=== PATIENT | male | born 1960 | race Caucasian/White ===

== ENCOUNTER 2017-01-10 09:24 | Day surgery (SDC) | payer OTHER ==
--- NOTE | 2017-01-05 21:05 | HP ---
HISTORY AND PHYSICAL: DATE OF ADMISSION: 01/10/17 [facility] DATE OF OFFICE VISIT: 01/04/17 SURGEON: William Solorzano MD * (DICTATED BY LLOYD MYLES) PROCEDURE: Left knee arthroscopy with partial medial meniscectomy. CHIEF COMPLAINT: Left knee pain. HISTORY OF PRESENT ILLNESS: Mr. Red is a 56-year-old gentleman with continued complaints of left knee pain secondary to medial meniscus tear. He has failed conservative management and has elected to proceed with a left knee arthroscopy with partial medial meniscectomy, which is scheduled with Dr. Solorzano. PAST MEDICAL HISTORY: Sleep apnea and hypertension. PAST SURGICAL HISTORY: Deviated septum surgery. CURRENT MEDICATIONS: 1. Amlodipine. 2. Losartan. 3. Bisoprolol fumarate/hydrochlorothiazide. ALLERGIES: To CODEINE. FAMILY HISTORY: Denied. SOCIAL HISTORY: He is a 56-year-old gentleman. He lives with his . He does not smoke or use drugs. 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 REVIEW OF SYSTEMS: A complete 14-point review of systems is reviewed with the patient; was all negative or noncontributory. PHYSICAL EXAMINATION GENERAL: Well developed, well nourished, in no acute distress. He is alert and oriented x3, pleasant mood, appropriate affect. HEENT: Normocephalic, atraumatic. NECK: Supple. No palpable lymph nodes. PULMONARY: Lungs are clear to auscultation bilaterally. CARDIO: Regular rate and rhythm. Strong S1, S2. ABDOMEN: Soft, nontender, nondistended. MUSCULOSKELETAL: Left lower extremity, the skin is intact. There are no open wounds or abrasions. He has tenderness over the medial joint line. Positive Rosa's. No varus or valgus instability. Negative Jhony's. 2+ dorsalis pedis pulses. His lower extremity muscle group strengths are intact at 5/5. ASSESSMENT AND PLAN: Mr. Red is a 56-year-old gentleman with a medial meniscus tear. He has elected to proceed with right knee arthroscopy with partial medial meniscectomy, which is scheduled with Dr. Solorzano. He will follow up with Dr. Solorzano 10 to 14 days after the surgery. LLOYD MYLES [id number]/[facility] #: [id number] [facility] CENTERGregorio
[~2017-01-10 09:24] MED LIST: Buffered Lidocaine 0.9% SYRIN* 5 ML/SYR SYRINGE INTRADERM ONE; Dexamethasone IV* 4 MG/ML 1 ML (4 MG) IV SLOW PU ONE; Famotidine IV* 10 MG/ML 2 ML (20 mg) IV ONE
[2017-01-10] MEDS ORDERED: Bupivacaine 0.25% SDV* 30 ML ONE ×2 (09:29→09:32)
[2017-01-10] MEDS ORDERED: ceFAZolin 2 GM PREMIX (*) 50 ML IVPB ONE (10:02)
[2017-01-10] MEDS ORDERED: Famotidine IV* 10 MG/ML 2 ML (20 mg) ONE (10:03)
[2017-01-10] MEDS ORDERED: Dexamethasone IV* 4 MG/ML 1 ML (4 MG) ONE (10:03)
[2017-01-10] MEDS ORDERED: Midazolam* 1 MG/ML 2 ML VIAL (2 MG) ONE (10:05)
[2017-01-10] MEDS ORDERED: fentaNYL* 50 MCG/ML 2 ML VIAL (100 MCG VIAL) ONE (10:05)
[2017-01-10] MEDS ORDERED: Ketorolac INJ* 30 MG/ML 1 ML VIAL ONE (10:08)
[2017-01-10] MEDS ORDERED: Propofol* 10 MG/ML 20 ML BTL IV PUSH ONE (10:08)
[2017-01-10] MEDS ORDERED: Ondansetron INJ* 2 MG/ML VIAL ONE (10:08)
[2017-01-10] MEDS ORDERED: EPHEDrine (Pressors)* 50 MG/ML VIAL ONE (11:00)
[2017-01-10] MEDS ORDERED: Phenylephrine IV* 40 MCG/ML 10 ML SYRINGE ONE (11:00)
[2017-01-10] MEDS ORDERED: fentaNYL* 50 MCG/ML 2 ML VIAL (100 MCG VIAL) IV PRN (11:25)
[2017-01-10] MEDS ORDERED: DiMENhydriNATE IV* 50 MG/ML VIAL IV PUSH PRN (11:25)
[2017-01-10 12:18] VITALS: BP 132/71
--- NOTE | 2017-01-12 06:33 | OP ---
CC: PCP. OPERATIVE REPORT: DATE OF : 60 DATE OF OPERATION: 01/10/17 SURGEON: William Solorzano MD. BLIND HANGER: None available. ANESTHESIOLOGIST: Dr. Hopper. ANESTHESIA: General. PRE-OP DIAGNOSIS: Left knee medial meniscus tear POST-OP DIAGNOSIS: Left knee medial meniscus tear, lateral meniscal fraying, chondrosis of medial femoral condyle and patella OPERATIVE PROCEDURE: Left knee arthroscopy with chondroplasty, partial medial and lateral menisectomy COMPLICATIONS: None. ESTIMATED BLOOD LOSS: Minimal. INDICATIONS: Cheryl Red is a 56-year-old male who sustained injury to his knee. He has failed conservative management. He had a steroid injection, which did not help and he had known meniscus tear based on MRI. He reported mechanical symptoms. We discussed risks and benefits of operative versus nonoperative treatment. He has persistent daily pain and inability and difficulty with his activities of daily living. The risks and benefits of surgery were discussed at length and included, but are not limited to bleeding, infection, damage to nerves, vessels, surrounding structures, wound nonhealing, persistent pain, need for further surgery, scarring, stiffness, incomplete relief symptoms, risks of anesthesia and risk of DVT, he has elected to proceed. DESCRIPTION OF PROCEDURE: The patient was greeted in the preoperative area by the attending surgeon. Correct extremity was marked. Consent was confirmed. The patient was brought back to the operating suite where he was placed in supine position on the operating table. He underwent general anesthesia and LMA intubation, after which an unsterile tourniquet was placed high proximal on the proximal thigh and the lateral post was positioned. The left leg was then prepped and draped in the usual sterile fashion with chlorhexidine soap, scrub and alcohol wipe and a final prep with ChloraPrep. After appropriate surgical pause indicating side, site, and procedure, administration of antibiotics, a standard lateral portal was made sharply with a 11 blade. The scope was introduced into the joint and the joint was examined. There were small areas of grade 2 changes in the patella. The trochlea otherwise had grade 0 to 1 changes and medial and lateral gutters were intact without any loose body. The medial femoral condyle had mild amount of grade 1 and some small areas of grade 2 changes. The medial meniscus had an unstable flap that had flipped into the joint and gutter that was incarcerated. The ACL and PCL were intact. The anteromedial portal was made with an 18 gauge needle for localization and the shaver and biters were used to carefully do a partial meniscectomy. The meniscus flap was then debrided back. This was the posterior medial aspect of the meniscus, the root was otherwise intact. Small chondroplasty of medial femoral condyle was done using a shaver. The knee was placed in a [id number] position and the lateral compartment was examined. There was grade 0 to 1 change to the plateau. Grade 1 and 2 changes of the condyle. There was meniscal fraying, which is also debrided back of the lateral meniscus. Once the partial meniscectomy of both sides were complete, then chondroplasty of medial femoral condyle and the patellofemoral joint was complete, all fluid and debris was removed. The knee was thoroughly lavaged. The portals were then irrigated with sterile saline and the portals were closed with 3-0 nylon in interrupted fashion. Sterile dressings were applied as well as Cryo/Cuff. He was awoken from anesthesia and transferred to PACU in stable condition. POSTOPERATIVE PLAN: He will be weightbearing as tolerated. He will be on crutches in 3 to 5 days. Discharged on pain medications. DVT prophylaxis was considered, but deferred due to no previous personal or family history. I will see the patient back in 10 to 14 days. [id number]/[facility] #: [id number] MTDD
== END 2017-01-10 12:50 | disposition home or self-care (01) ==
LOC: OREAST 09:24
PROVIDERS: ATTEND Orthopaedic Surgery
DX: S83.242A Other tear of medial meniscus, current injury, left knee, initial encounter (principal); S83.282A Other tear of lateral meniscus, current injury, left knee, initial encounter; X58.XXXA Exposure to other specified factors, initial encounter; Y92.9 Unspecified place or not applicable; Z68.41 Body mass index [BMI] 40.0-44.9, adult; G47.33 Obstructive sleep apnea (adult) (pediatric); I10 Essential (primary) hypertension
CPT/HCPCS: J0690; J1100; J1885; J2250; J2405; J2704; J3010

== ENCOUNTER 2018-05-30 05:32 | Inpatient (IN) | payer OTHER ==
--- NOTE | 2018-05-18 14:54 | HP ---
HISTORY AND PHYSICAL: DATE OF SURGERY: 05/30/18 DATE OF OFFICE VISIT: 05/17/18 SURGEON: Annika Rothman MD.* (DICTATED BY LLOYD MYLES) PROCEDURE: Left total knee arthroplasty. CHIEF COMPLAINT: Left knee pain. HISTORY OF PRESENT ILLNESS: Mr. Red is a 57-year-old gentleman with continued complaints of left knee pain. He has failed conservative treatment and elected to proceed with surgery. PAST MEDICAL HISTORY: Hypertension. PAST SURGICAL HISTORY: Sinus surgery, left knee scope x2. CURRENT MEDICATIONS: 1. Losartan potassium 100 mg daily. 2. Amlodipine 10 mg daily. 3. Bisoprolol/hydrochlorothiazide 10/6.25 mg once a day. 4. Naproxen 250 mg daily. 5. Multivitamin. ALLERGIES: To CODEINE, SULFA, and PERCOCET. CODEINE and PERCOCET causing constipation only. FAMILY HISTORY: Denied. SOCIAL HISTORY: He is a 57-year-old gentleman who lives with his . He does not smoke or use drugs, uses occasional alcohol. REVIEW OF SYSTEMS: A complete 14-point review of systems was reviewed with the patient. It was all negative or noncontributory. PHYSICAL EXAMINATION GENERAL: He is well developed, well nourished, in no acute distress. VITAL SIGNS: He stands 5 feet 5 inches tall, weighs 281 pounds. Blood pressure is 120/74, heart rate 60. HEENT: Normocephalic, atraumatic. NECK: Supple, no palpable lymph nodes. PULMONARY: Lungs are clear to auscultation bilaterally. CARDIAC: Regular rate and rhythm. Strong S1, S2. ABDOMEN: Soft, nontender, nondistended. NEUROLOGICAL: He is alert and oriented x3. MUSCULOSKELETAL: Left lower extremity, the skin is intact. There are no open wounds or abrasions. Range of motion is 10 to 120 degrees of flexion. Calves are soft and nontender. He has a 2+ dorsalis pedis pulse and his lower extremity muscle group strengths are intact at 5/5. ASSESSMENT AND PLAN: Mr. Red is a 57-year-old gentleman with end-stage osteoarthritis of the left knee, who has failed conservative treatment and elected to proceed with left total knee arthroplasty. The surgery is scheduled for 05/30/[address] Rothamn discussed the risks and benefits of the surgery at today's visit and all of his questions were answered. He will follow up with Dr. Rothman 2 weeks after the surgery. LLOYD MYLES [id number]/[facility] #: [id number] MTDD
[~2018-05-30 05:32] MED LIST changes: -Buffered Lidocaine 0.9% SYRIN* 5 ML/SYR SYRINGE INTRADERM ONE; +Buffered Lidocaine 1% SYRIN* 1 ML/SYRINGE INTRADERM ONE; -Dexamethasone IV* 4 MG/ML 1 ML (4 MG) IV SLOW PU ONE; -Famotidine IV* 10 MG/ML 2 ML (20 mg) IV ONE; +Tranexamic Acid 1,000 MG in NS 0.9% 50 ML* (outpatient use) IV SCH
[2018-05-30] MEDS ORDERED: celeCOXIB CAP* 200 MG PO ONE (06:00)
[2018-05-30] MEDS ORDERED: Dexamethasone IV* 4 MG/ML 1 ML (4 MG) IV SLOW PU ONE (06:00)
[2018-05-30] MEDS ORDERED: Lactated Ringers 1000 ML Bag* 1,000 ML IV SCH ×2 (06:00→11:00)
[2018-05-30] MEDS ORDERED: Gabapentin CAP(*) 300 MG PO ONE (06:00)
[2018-05-30] MEDS ORDERED: Acetaminophen IV 1GM/100ML * 1,000 MG/100 ML VIAL IVPB ONE (06:00)
[2018-05-30] MEDS ORDERED: Famotidine IV* 10 MG/ML 2 ML (20 mg) IV ONE (06:00)
[2018-05-30] MEDS ORDERED: Dexamethasone IV* 4 MG/ML 1 ML (4 MG) ONE ×2 (06:05→06:25)
[2018-05-30] MEDS ORDERED: ceFAZolin 2 GM PREMIX in ORs 2 GM/50 ML BAG IVPB ONE (06:05)
[2018-05-30] MEDS ORDERED: Gabapentin CAP(*) 300 MG ONE (06:05)
[2018-05-30] MEDS ORDERED: celeCOXIB CAP* 100 MG ONE (06:05)
[2018-05-30] MEDS ORDERED: Buffered Lidocaine 1% SYRIN* 1 ML/SYRINGE INTRADERM ONE (06:05)
[2018-05-30] MEDS ORDERED: Famotidine IV* 10 MG/ML 2 ML (20 mg) ONE (06:25)
[2018-05-30] MEDS ORDERED: Acetaminophen IV 1GM/100ML * 100 ML ONE (06:26)
[2018-05-30] MEDS ORDERED: Propofol* 10 MG/ML 20 ML BTL ONE (07:09)
[2018-05-30] MEDS ORDERED: Atracurium* 10 MG/ML 10 ML VIAL ONE (07:09)
[2018-05-30] MEDS ORDERED: fentaNYL* 50 MCG/ML 5 ML VIAL (250 MCG VIAL) ONE (07:09)
[2018-05-30] MEDS ORDERED: Ondansetron INJ* 2 MG/ML VIAL ONE (07:09)
[2018-05-30] MEDS ORDERED: Midazolam* 1 MG/ML 5 ML VIAL (5 MG) ONE (07:09)
[2018-05-30] MEDS ORDERED: EPHEDrine (Pressors)* 50 MG/ML VIAL ONE (07:10)
[2018-05-30] MEDS ORDERED: ROPIVACAINE 5 MG/ML 30 ML BTL (0.5%) ONE ×3 (07:15→07:23)
[2018-05-30] MEDS ORDERED: Ropivacaine* 2 MG/ML 20 ML VIAL (0.2%) ONE (07:20)
[2018-05-30] MEDS ORDERED: fentaNYL* 50 MCG/ML 2 ML VIAL (100 MCG VIAL) ONE ×4 (08:20→13:23)
[2018-05-30] MEDS ORDERED: Ondansetron INJ* 2 MG/ML VIAL IV PRN ×2 (08:28→10:22)
[2018-05-30] MEDS ORDERED: Naloxone* 0.4 MG/ML 1 ML VIAL IV PRN (08:28)
[2018-05-30] MEDS ORDERED: DiMENhydriNATE IV* 50 MG/ML VIAL IV PUSH PRN (08:28)
[2018-05-30] MEDS ORDERED: Phenylephrine INJ* 10 MG/ML 1 ML VIAL (10 MG) ONE (08:53)
[2018-05-30] MEDS ORDERED: Ondansetron TAB* 4 MG PO PRN (10:22)
[2018-05-30] MEDS ORDERED: oxyCODONE TAB* 5 MG TAB PO PRN (10:22)
[2018-05-30] MEDS ORDERED: Polyethylene Glycol 3350* 17 GM PACKET PO PRN (10:22)
[2018-05-30] MEDS ORDERED: traMADol TAB* 50 MG PO PRN (10:22)
[2018-05-30] MEDS ORDERED: oxyCODONE/Acetamin 5/325 MG* TAB PO PRN ×2 (10:22)
[2018-05-30] MEDS ORDERED: Bisacodyl SUPP* 10 MG SUPP PR PRN (10:22)
[2018-05-30] MEDS ORDERED: diPHENhydraMINE IV* 50 MG/ML 1 ml VIAL (BENADRYL) IV PRN (10:22)
[2018-05-30] MEDS ORDERED: Magnesium Hydroxide LIQ* 30 ML UDC PO PRN (10:22)
[2018-05-30] MEDS ORDERED: HYDROmorphone INJ1* 1 MG/ML SYRINGE ONE (10:33)
[2018-05-30] MEDS: fentaNYL* 50 MCG/ML 2 ML VIAL (100 MCG VIAL) IV PRN ×5 (10:35→11:32)
[2018-05-30] MEDS: HYDROmorphone INJ1* 1 MG/ML SYRINGE IV PRN ×5 (10:51→11:41)
[2018-05-30] MEDS ORDERED: Acetaminophen TAB* 325 MG PO SCH (11:00)
[2018-05-30] MEDS ORDERED: DiMENhydriNATE IV* 50 MG/ML VIAL ONE (12:52)
[2018-05-30] MEDS ORDERED: HYDROcodone/ACETAMIN 5-325 MG* 1 TAB PO PRN (13:24)
[2018-05-30] MEDS ORDERED: Acetaminophen TAB* 325 MG PO PRN (13:26)
--- NOTE | 2018-05-30 14:20 | PN ---
Progress Note - Progress Note Date of Service: 05/30/18 Note: resting comfortably, pain well controlled; dressing c/d/i. able to dorsi flex/ plantar flex, 2+ DP pulse/ intact sensation
[2018-05-30] MEDS: traMADol TAB* 50 MG PO SCH ×2 (15:47→20:35)
[2018-05-30] MEDS: ceFAZolin 1 GM ADVAN(*) 1 GM in NS 0.9% 50 ML* 50 ML IVPB SCH (16:43)
--- NOTE | 2018-05-30 16:47 | CONS ---
CC: Dr. Rothman; Dr. Bloom * CONSULTATION REPORT: DATE OF CONSULT: 05/30/18 PRIMARY CARE PROVIDER: Dr. Chapin Bloom. REASON FOR CONSULTATION: Desaturation and elevated CO2 levels on capnography. CHIEF COMPLAINT: Unknown. HISTORY OF PRESENT ILLNESS: Cheryl Red is a 57-year-old morbidly obese male with history of hypertension, status post left knee replacement performed by Dr. Rothman today. The patient did well postoperatively until he left the PACU and went to surgical unit. His capnography noted CO2 levels of 55 to 60. His oxygenation fell down to the point that he needed to use oxygen at 3 to 6 L. A rapid response team was called. The patient's anesthesiologist was by the bedside. It was noted the patient has body physique that may predispose the patient to obstructive sleep apnea. The patient stated that he does snore at night, but he was never evaluated for sleep apnea. An ABG was drawn. At this point, decision is made to transfer the patient to the intensive care unit for CPAP since as per hospitalist policy, new patients who require CPAP needs to be hospitalized in the intensive care unit. PAST MEDICAL HISTORY: 1. Hypertension. 2. Obesity. 3. Osteoarthritis. 4. History of left knee arthroscopy. 5. History of deviated septum surgery at around age 20. 6. History of right bundle branch block. 7. History of BPH. MEDICATIONS: Outpatient include: 1. Naproxen 500 q.a.m. 2. Multivitamin 1 tablet daily. 3. Losartan 100 mg daily. 4. Bisoprolol/hydrochlorothiazide 10/6.25 mg 1 tablet daily. 5. Norvasc 10 mg daily. ALLERGIES: Include HYDROCODONE, CODEINE, ACETAMINOPHEN, and SULFA drugs. FAMILY HISTORY: Noncontributory. 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 His surrogate is his . He denies any tobacco or drug use. He drinks an occasional beer. REVIEW OF SYSTEMS: The patient currently feels no short of breath, no chest pain. He is postoperative. He was noted to be as rapid response team and he is little bit overwhelmed with people surrounding him. He has no complaints of postoperative pain. He received the dose of Fentanyl and hydromorphone approximately 2 hours ago. Remaining 12 systems were reviewed with the patient and were otherwise negative. PHYSICAL EXAM: Blood pressure of 148/90, heart rate of 79 and regular, respiratory rate 18, oxygen saturation 93% on 3 L oxygen via nasal cannula, temperature 96.8. General Appearance: This is a very pleasant 57-year-old male with a BMI of 45. The patient is not in acute distress. Alert, awake, and oriented x3. HEENT: Head: Atraumatic and normocephalic. Eyes: Pupils are equal and reactive to light and accommodation. Oropharynx clear, mucosa moist. Neck: Supple. No JVD. No bruits bilaterally. Cardiovascular: Regular rate and rhythm. No murmur. Respiratory: Clear to auscultation bilaterally. Abdomen: Soft, nontender. Bowel sounds are present in all 4 quadrants. Extremities: There is trace bilateral ankle edema. Pulses are +2 bilaterally. There is no clubbing or cyanosis. The left lower extremity, the knee area is covered with postsurgical dressing with Cryo unit in place. Neuro Evaluation: Speech is clear. Cranial nerves II through XII are grossly intact. Motor strength 5/5 bilaterally with limitations of movement in the left postoperative knee that was not fully evaluated. Psychiatric Evaluation: Alert and oriented x3 with no evidence of anxiety or depression. DIAGNOSTIC STUDIES/LAB DATA: Showed ABG which shows pH of 7.29, pCO2 of 59, pO2 of 83, and bicarbonate level of 25. The patient's portable chest x-ray; poor inspiratory effort and no evidence of cardiac infiltrates. Cardiac silhouette within normal limits. It was reviewed by myself prior to the official radiologist report. ASSESSMENT AND PLAN: 1. Hypercapnic respiratory failure in patient who has likely undiagnosed obstructive sleep apnea, is morbidly obese, and is postoperative with narcotics on board. At this point, the patient is going to be transferred to intensive care unit for CPAP or BiPAP. He has respiratory acidosis and his ABG is going to be repeated in an hour. I suspect the patient will need only an overnight stay. 2. In regards to the patient's postoperative management after knee surgery, that is already managed by orthopedic surgeons. 3. In regards to the patient's DVT prophylaxis, postop Eliquis was already ordered by the orthopedic service. 4. For the patient's hypertension, the patient's blood pressure medications were reordered for tomorrow. His blood pressures are currently in the 140s and I believe we do not need to hold any of his medications in the morning. 5. The patient's code status is full and his surrogate is his . TIME SPENT: Approximately 65 minutes was spent on consultation of this patient , more than half that time was spent [id number] with the patient during the interview and physical exam. Thank you very much for allowing us to see the patent in consultation. We will follow on daily basis. [id number]/[facility] #: [id number] MARU
[2018-05-30] MEDS: Cyclobenzaprine TAB* 10 MG PO PRN (16:48)
[2018-05-30] MEDS: Morphine VIAL* 4 MG/ML VIAL (1 ml vial) IV PRN (18:43)
[2018-05-30] MEDS: HYDROcodone/ACETAMIN 5-325 MG* 1 TAB PO PRN (19:19)
[2018-05-30] MEDS: Magnesium Hydroxide LIQ* 30 ML UDC PO SCH (20:35)
[2018-05-30] MEDS: Gabapentin CAP(*) 300 MG PO SCH (20:35)
[2018-05-30] MEDS: Docusate CAP* 100 MG PO SCH (20:36)
--- NOTE | 2018-05-30 22:10 | OP ---
DATE OF OPERATION: 05/30/18 - ROOM #ICU-11 DATE OF : 60 SURGEON: Annika Rothman MD [employer]ATION [employer] AGENT: LLOYD Williamson. Ms. Rivera did help throughout the procedure with preparation of the leg, wound retraction, manipulation of the knee, and wound closure. ANESTHESIOLOGIST: Dr. Pelaez. ANESTHESIA: Spinal. PRE-OP DIAGNOSIS: Severe end-stage osteoarthritis of the left knee joint. POST-OP DIAGNOSIS: Severe end-stage osteoarthritis of the left knee joint. OPERATIVE PROCEDURE: Left total knee arthroplasty. INDICATIONS: Mr. Red is a 57-year-old gentleman with 1 year of severe left knee pain. He had multiple arthroscopies, which did not help his pain. He failed conservative treatment with antiinflammatories, pain medication, intraarticular injection, and physical therapy. His radiographs showed bone-on- bone arthritis. Due to continued pain and decreased quality of life, he elected to undergo a left total knee arthroplasty. Informed consent was obtained from the patient. He understood the risks of surgery included, but were not limited to, bleeding, infection, damage to nearby structures, continued pain, need for further surgery, intraoperative fracture, nerve palsy, hardware failure or loosening, knee stiffness, loss of motion, stroke, heart attack, blood clot, and . He wished to proceed. TOURNIQUET TIME: 53 minutes. COMPLICATIONS: None. SPECIMENS: Bone and cartilage from the left knee joint sent to Pathology. ESTIMATED BLOOD LOSS: 200 cc. HARDWARE USED: This is [employer] total knee arthroplasty hardware. Two packages of Simplex bone cement. For the femur, a left size 7 posterior stabilized Legion Oxinium femoral component. For the tibia, a left Gayathri II size 5 tibial base plate. For the insert, an 11-mm posterior stabilized articular insert size 5/6. For the patella, a 35-mm 3-peg all poly patella. INTRAOPERATIVE FINDINGS: Intraoperatively, the patient was noted to have full thickness loss of cartilage along the medial and lateral femoral condyle. He had extensive osteoarthritis in the patellofemoral compartment. DESCRIPTION OF PROCEDURE: Mr. Red was identified in the preanesthesia unit. His left lower extremity was marked as the correct operative side. Informed consent was signed and placed in the chart. The patient was taken to the operating room and placed under spinal anesthesia. A Gallego catheter was placed. Tourniquet was placed on the left thigh. Left lower extremity was prepped and draped in the usual sterile fashion. Preop time-out was made to correctly identify the patient's side and site. Appropriate perioperative antibiotics were given within 1 hour of incision. Tourniquet was inflated and total tourniquet time for this procedure minutes. A midline incision was made with a 10 blade and carried down to the extensor mechanism. A new 10 blade was used to make a standard medial parapatellar arthrotomy. The patella was subluxed laterally. Electrocautery was used to subperiosteally elevate the soft tissue off the superomedial tibia to the midsagittal plane. The knee was flexed up. Anterior horn of the lateral meniscus and ACL were sharply released. A drill was used to enter the distal femur. Intramedullary distal femoral cutting guide was pinned on the distal femur. Oscillating saw was used to make the distal femoral cut. The external rotation guide was pinned on the distal femur. Distal femur was sized to a size 7. Size 7 multi-cutting jig was pinned on the distal femur. Oscillating saw was used to make the appropriate 4-chamfer cuts. The PCL was completely released. Extramedullary tibial cutting guide was pinned on the proximal tibia. Oscillating saw was used to make the proximal tibial cut perpendicularly to the mechanical axis of the tibia. The bone was carefully removed. The knee was brought out into full extension. Spacer block had good fit with the knee in full extension. Medial and lateral ligaments were well balanced. Flexion and extension gaps were well balanced. The knee was flexed up. Lamina stroke belt sander operator was placed both medially and laterally. Any remaining meniscus was carefully removed using electrocautery. Curved osteotome was used to remove any posterior osteophytes. Tibial tray and drop ama confirmed a satisfactory tibial cut. A left size 7 femoral trial was impacted on to the distal femur and had excellent fit and stability. The box for the posterior stabilized implant was prepared using a reamer and box cut osteotome. Size 5 tibial tray trial with an 11-mm insert trial was placed and the knee was taken through a range of motion. Knee had full extension to 130 degrees of flexion. There was satisfactory patellofemoral tracking. The patella was everted. 9 mm of patellar bone and cartilage were carefully removed using an oscillating saw. The patella was sized to a size 35. Three pegs holes were drilled through the size 35 guide. A 35 trial patella was placed and the knee was taken through range of motion. There was satisfactory patello-femoral tracking. All trials were removed. The tibia was subluxed anteriorly and sized to a size 5. Proximal tibia was prepared using a size 5 keel punch. All bony cut surfaces were copiously irrigated with sterile saline and dried. The final implants were cemented into place starting with the tibia, followed by the femur , and lastly the patella. An 11-mm insert trial was placed and the knee was brought out into full extension. Tourniquet was turned down at 53 minutes. The knee was copiously irrigated with sterile saline. Electrocautery was used to obtain meticulous hemostasis. Once the cement had fully cured, the insert trial was removed. Any excess cement was removed from around the capsule and hardware. Final insert chosen was an 11-mm posterior stabilized articular insert size 5/6. This was locked into position on the tibial tray. Stability of the insert was checked and rechecked and noted to be stable. The knee was copiously irrigated with sterile saline. The extensor mechanism was closed using interrupted #1 Vicryls. The rest of the incision was closed in a layered fashion using 0 and 2-0 Vicryls. Skin was closed using running 3- 0 nylon suture. Sterile Xeroform, 4x4s, and Webril were used to cover the incision. Freeman wrap and cold pack were placed over this. The patient's anesthesia was reversed without difficulty. He was taken to the PACU in stable condition. Intended weightbearing will be weightbearing as tolerated. Intended DVT prophylaxis will be Eliquis. [id number]/[facility] #: [id number] [facility]
[2018-05-31] MEDS: ceFAZolin 1 GM ADVAN(*) 1 GM in NS 0.9% 50 ML* 50 ML IVPB SCH ×2 (00:01→08:00)
[2018-05-31] MEDS: traMADol TAB* 50 MG PO SCH ×2 (01:56→08:15)
[2018-05-31 06:07] LABS: Hematocrit 45 % (42-52); Hemoglobin 14.9 g/dl (14.0-18.0); Mean Platelet Volume 10.3 fL (7.4-10.4); Platelet Count 124 10^3/ul (150-450)
[2018-05-31] MEDS: HYDROcodone/ACETAMIN 5-325 MG* 1 TAB PO PRN ×4 (06:08→19:25)
[2018-05-31 06:12] LABS: INR 0.98 (0.77-1.02)
[2018-05-31 06:21] LABS: BUN/Creatinine Ratio 15.9 (8-20); Calcium 8.9 mg/dL (8.6-10.3); EGFR African American 117.2 (>60); EGFR Non-African American 96.8 (>60); Potassium 4.6 mmol/L (3.5-5.0)
[2018-05-31] MEDS: Hydrochlorothiazide TAB* 25 MG PO SCH (08:13)
[2018-05-31] MEDS: Losartan TAB* 25 MG PO SCH (08:14)
[2018-05-31] MEDS: amLODIPine TAB* 5 MG PO SCH (08:15)
[2018-05-31] MEDS: Docusate CAP* 100 MG PO SCH ×2 (08:15→22:09)
[2018-05-31] MEDS: Gabapentin CAP(*) 300 MG PO SCH ×2 (08:15→22:09)
[2018-05-31] MEDS: Magnesium Hydroxide LIQ* 30 ML UDC PO SCH ×2 (08:16→22:10)
[2018-05-31] MEDS: Bisoprolol TAB* 5 MG PO SCH (08:16)
[2018-05-31] MEDS ORDERED: BISOPROLOL PO SCH (09:00)
[2018-05-31] MEDS ORDERED: HYDROCHLOROTHIAZIDE PO SCH (09:00)
[2018-05-31] MEDS: Apixaban* 2.5 MG TAB PO SCH ×2 (09:31→22:09)
--- NOTE | 2018-05-31 09:52 | PN ---
Subjective Date of Service: 05/31/18 Interval History: Pt feels "much better". Post op pain well controlled. No SOB on 2L 02 Objective Active Medications: Acetaminophen (Tylenol Tab*) 975 mg PO Q8H PRN PRN Reason: FEVER/PAIN Last Admin: 05/30/18 15:48 Dose: 975 mg Hydrocodone Bitart/Acetaminophen ([place] 5-325 Tab*) 2 tab PO Q4H PRN PRN Reason: PAIN - SEVERE Last Admin: 05/31/18 06:08 Dose: 2 tab Hydrocodone Bitart/Acetaminophen ([place] 5-325 Tab*) 1 tab PO Q4H PRN PRN Reason: PAIN - MODERATE Amlodipine Besylate ([facility]*) [facility] Last Admin: 05/31/18 08:15 Dose: 10 mg Apixaban (Eliquis*) 2.5 mg PO BID [facility] Last Admin: 05/31/18 09:31 Dose: 2.5 mg Bisacodyl (Dulcolax Supp*) 10 mg HI DAILY PRN PRN Reason: constipation Bisoprolol Fumarate ([facility]ebeta Tab*) [facility] [place] Last Admin: 05/31/18 08:16 Dose: 10 mg Cyclobenzaprine HCl (Flexeril Tab*) 10 mg PO TID PRN PRN Reason: SPASMS Last Admin: 05/30/18 16:48 Dose: 10 mg Diphenhydramine HCl (Benadryl Iv*) 12.5 mg IV Q6H PRN PRN Reason: PRURITIS Docusate Sodium (Colace Cap*) 100 mg PO BID [facility] Last Admin: 05/31/18 08:15 Dose: 100 mg Gabapentin (Neurontin Cap(*)) 300 mg PO BID [facility] Last Admin: 05/31/18 08:15 Dose: 300 mg Hydrochlorothiazide (Hydrodiuril Tab*) 6.25 [facility] [place] Last Admin: 05/31/18 08:13 Dose: 6.25 mg Lactated Ringer's (Lactated Ringers 1000 Ml Bag*) 1,000 mls @ 100 mls/hr IV PER RATE [facility] Last Admin: 05/30/18 13:50 Dose: 100 mls/hr Lactulose (Lactulose*) 30 ml PO Q6H PRN PRN Reason: constipation Losartan Potassium (Cozaar Tab*) 100 mg PO QAM [facility] Last Admin: 05/31/18 08:14 Dose: 100 mg Magnesium Hydroxide (Milk Of Magnesia Liq*) 30 ml PO BID [facility] Last Admin: 05/31/18 08:16 Dose: 30 ml Magnesium Hydroxide (Milk Of Magnesia Liq*) 30 ml PO Q6H PRN PRN Reason: constipation Morphine Sulfate (Morphine Vial*) 2 mg IV Q2H PRN PRN Reason: PAIN Last Admin: 05/30/18 18:43 Dose: 2 mg Ondansetron HCl (Zofran Inj*) 4 mg IV Q6H PRN PRN Reason: nausea Ondansetron HCl (Zofran Tab*) 4 mg PO Q6H PRN PRN Reason: NAUSEA Polyethylene Glycol/Electrolytes (Miralax*) 17 gm PO DAILY PRN PRN Reason: Constipation Tramadol HCl (Ultram*) 50 mg PO Q6H PRN PRN Reason: PAIN - MODERATE TO SEVERE Vital Signs - 8 hr 05/31/18 05/31/18 05/31/18 02:00 03:00 03:56 Temperature Pulse Rate 63 62 62 Respiratory 15 18 18 Rate Blood Pressure 115/63 114/67 (mmHg) O2 Sat by Pulse 92 93 93 Oximetry 05/31/18 05/31/18 05/31/18 04:00 05:00 05:52 Temperature 97.9 F Pulse Rate 62 67 Respiratory 15 14 16 Rate Blood Pressure 121/68 128/72 (mmHg) O2 Sat by Pulse 94 94 Oximetry 05/31/18 05/31/18 06:00 08:00 Temperature 98.9 F Pulse Rate 66 Respiratory 26 Rate Blood Pressure 135/75 (mmHg) O2 Sat by Pulse 93 Oximetry Oxygen Devices in Use Now: Nasal Cannula Appearance: 57 yo obese M in nAD, aAOx3 Eyes: No Scleral Icterus, PERRLA Ears/Nose/Mouth/Throat: NL Teeth, Lips, Gums, Mucous Membranes Moist Neck: NL Appearance and Movements; NL JVP, Trachea Midline Respiratory: Symmetrical Chest Expansion and Respiratory Effort, Clear to Auscultation Cardiovascular: NL Sounds; No Murmurs; No JVD, RRR Abdominal: NL Sounds; No Tenderness; No Distention Lymphatic: No Cervical Adenopathy Extremities: No Edema, - - left ankle mild edema, L knee in post op dressings Skin: No Rash or Ulcers, No Nodules or Sclerosis Neurological: Alert and Oriented x 3, NL Muscle Strength and Tone Result Diagrams: 05/31/18 05:50 05/31/18 05:50 Assess/Plan/Problems-Billing Assessment: 57 yo M with h/o obesity and HTN developed resp acidosis post op requiring CPAP in ICU - Patient Problems (1) Acute hypercapnic respiratory failure Comment: resolved, pt is back to [place]. AAOx3 spoke with pt about the importance to f/u with PCP and set up a sleep study (2) History of total knee arthroplasty Comment: TKR on left-as per ortho (3) HTN (hypertension) Comment: controlled on Ziac, Norvasc and losartan (4) DVT prophylaxis Comment: Eliquis as per ortho mild thrombocytopenia post op , cont to monitor Status and Disposition: medicine consult Thank you will sign off, please call if needed
[2018-05-31] MEDS: Morphine VIAL* 4 MG/ML VIAL (1 ml vial) IV PRN ×4 (11:30→22:03)
--- NOTE | 2018-05-31 12:12 | PN ---
Progress Note - Progress Note Date of Service: 05/31/18 SOAP: Subjective: []Pt seen and examined OOB in chair in the ICU. He stayed the night in the ICU due to new CPAP requirement. Reports feeling surprisingly well rested after using CPAP overnight. Denies CP, SOB, dizziness or nausea. Objective: []General: Well appearing, NAD LLE: Left knee dressing is clean, dry and intact. Thigh is soft, DF/PF intact. DP2+, sensation intact to light touch distally Calves supple and nontender without erythema, edema or palpable cords. Assessment: []POD 1 sp Left total knee replacement Plan: []WBAT PT/OT eliquis 2.5 mg po BID Needs home sleep study at discharge Back to [facility] today Vital Signs Temp 98.9 F 05/31/18 08:00 Pulse 73 05/31/18 10:01 Resp 12 05/31/18 11:30 BP 115/66 05/31/18 10:01 Pulse Ox 97 05/31/18 10:01 Intake & Output 05/30/18 05/31/18 05/31/18 18:59 06:59 18:59 Intake Total 1450 1898 Output Total 756 1925 Balance 694 -27 Weight 285 lb Intake: IV Fluids 1450 698 ABX 110 LR 1400 NS (0.9%) 588 NS 50ML, Cefazolin 2G 50 Oral 0 1200 Output: [place] 756 1925 Laboratory Last Values Hgb 14.9 g/dl (14.0-18.0) 05/31/18 05:50 Hct 45 % (42-52) 05/31/18 05:50 Plt Count 124 10^3/ul (150-450) L 05/31/18 05:50 MPV 10.3 fL (7.4-10.4) 05/31/18 05:50 INR (Anticoag Therapy) 0.98 (0.77-1.02) 05/31/18 05:50 Patient Temperature Not Reportable 05/30/18 16:02 ABG pH 7.32 (7.35-7.45) L 05/30/18 16:02 ABG pH (Temp Correct) Not Reportable 05/30/18 16:02 ABG pCO2 56 mmHg (35-45) H 05/30/18 16:02 ABG pCO2 (Temp Corrct Not Reportable 05/30/18 16:02 ABG pO2 78 mmHg (80-100) L 05/30/18 16:02 ABG pO2 (Temp Correct Not Reportable 05/30/18 16:02 ABG HCO3 26.1 mmol/L (19-31) 05/30/18 16:02 ABG O2 Saturation 96.5 % (94.0-98.0) 05/30/18 16:02 ABG Base Excess 1.6 mmol/L (-2.0-2.0) 05/30/18 16:02 Respiration Rate 14 05/30/18 16:02 Ventilator Type Not Reportable 05/30/18 16:02 Vent Mode Not Reportable 05/30/18 16:02 FiO2 35 05/30/18 16:02 Inspiratory Time Not Reportable 05/30/18 16:02 PEEP Not Reportable 05/30/18 16:02 Pressure Support Not Reportable 05/30/18 16:02 Pressure Control Not Reportable 05/30/18 16:02 EPAP 6 05/30/18 16:02 IPAP 14 05/30/18 16:[address] 05/30/18 16:02 Sodium 137 mmol/L (135-145) 05/31/18 05:50 Potassium 4.6 mmol/L (3.5-5.0) 05/31/18 05:50 Chloride 101 mmol/L (101-111) 05/31/18 05:50 Carbon Dioxide 31 mmol/L (22-32) 05/31/18 05:50 Anion Gap 5 mmol/L (2-11) 05/31/18 05:50 BUN 13 mg/dL (6-24) 05/31/18 05:50 Creatinine 0.82 mg/dL (0.67-1.17) 05/31/18 05:50 Est GFR ( Amer) 117.2 (>60) 05/31/18 05:50 Est GFR (Non-Af Amer) 96.8 (>60) 05/31/18 05:50 BUN/Creatinine Ratio 15.9 (8-20) 05/31/18 05:50 Glucose 124 mg/dL (70-100) H 05/31/18 05:50 Calcium 8.9 mg/dL (8.6-10.3) 05/31/18 05:50
[2018-05-31] MEDS: traMADol TAB* 50 MG PO PRN ×2 (12:18→18:25)
[2018-05-31] MEDS: Cyclobenzaprine TAB* 10 MG PO PRN (22:16)
[2018-06-01] MEDS: HYDROcodone/ACETAMIN 5-325 MG* 1 TAB PO PRN ×6 (00:15→21:11)
[2018-06-01] MEDS: traMADol TAB* 50 MG PO PRN ×3 (03:54→16:48)
[2018-06-01 06:02] LABS: Hematocrit 45 % (42-52); Hemoglobin 14.9 g/dl (14.0-18.0); Mean Platelet Volume 10.6 fL (7.4-10.4); Platelet Count 104 10^3/ul (150-450)
[2018-06-01 06:08] LABS: INR 1.06 (0.77-1.02)
[2018-06-01] MEDS: Losartan TAB* 25 MG PO SCH (08:49)
[2018-06-01] MEDS: Bisoprolol TAB* 5 MG PO SCH (08:50)
[2018-06-01] MEDS: Hydrochlorothiazide TAB* 25 MG PO SCH (08:50)
[2018-06-01] MEDS: Apixaban* 2.5 MG TAB PO SCH ×2 (08:50→21:11)
[2018-06-01] MEDS: Gabapentin CAP(*) 300 MG PO SCH ×2 (08:50→21:10)
[2018-06-01] MEDS: Docusate CAP* 100 MG PO SCH ×2 (08:51→21:11)
[2018-06-01] MEDS: Magnesium Hydroxide LIQ* 30 ML UDC PO SCH ×2 (08:51→21:12)
[2018-06-01] MEDS: amLODIPine TAB* 5 MG PO SCH (08:55)
--- NOTE | 2018-06-01 10:01 | PN ---
Progress Note - Progress Note Date of Service: 06/01/18 SOAP: Subjective: []Pt seen at bedside, he feels quite well. Denies CP, SOB, dizziness or nausea. He remains on O2, though he has weaned down from to 2.5 L and remains at 95%. Knee pain is well controlled. Objective: [] General: Well appearing, NAD LLE: Left knee dressing changed, incision is clean, dry and intact. Thigh is soft, DF/PF intact. DP2+, sensation intact to light touch distally Calves supple and nontender without erythema, edema or palpable cords. Assessment: []POD 2 sp Left total knee replacement Plan: []WBAT PT/OT eliquis 2.5 mg po BID Needs home sleep study at discharge Nursing weaning down O2, plan for discharge home today as long as patient tolerates room air well Vital Signs Temp 97.4 F 06/01/18 07:51 Pulse 85 06/01/18 07:51 Resp 20 06/01/18 09:59 BP 119/65 06/01/18 07:51 Pulse Ox 94 06/01/18 09:59 Intake & Output 05/31/18 06/01/18 06/01/18 18:59 06:59 18:59 Intake Total 1090 575 480 Output Total 650 600 700 Balance 440 -25 -220 Intake: Oral 1090 575 480 Output: Urine 650 600 700 Other: # Bowel Movements 0 Laboratory Last Values Hgb 14.9 g/dl (14.0-18.0) 06/01/18 05:31 Hct 45 % (42-52) 06/01/18 05:31 Plt Count 104 10^3/ul (150-450) L 06/01/18 05:31 MPV 10.6 fL (7.4-10.4) H 06/01/18 05:31 INR (Anticoag Therapy) 1.06 (0.77-1.02) H 06/01/18 05:31 Patient Temperature Not Reportable 05/30/18 16:02 ABG pH 7.32 (7.35-7.45) L 05/30/18 16:02 ABG pH (Temp Correct) Not Reportable 05/30/18 16:02 ABG pCO2 56 mmHg (35-45) H 05/30/18 16:02 ABG pCO2 (Temp Corrct Not Reportable 05/30/18 16:02 ABG pO2 78 mmHg (80-100) L 05/30/18 16:02 ABG pO2 (Temp Correct Not Reportable 05/30/18 16:02 ABG HCO3 26.1 mmol/L (19-31) 05/30/18 16:02 ABG O2 Saturation 96.5 % (94.0-98.0) 05/30/18 16:02 ABG Base Excess 1.6 mmol/L (-2.0-2.0) 05/30/18 16:02 Respiration Rate 14 05/30/18 16:02 Ventilator Type Not Reportable 05/30/18 16:02 Vent Mode Not Reportable 05/30/18 16:02 FiO2 35 05/30/18 16:02 Inspiratory Time Not Reportable 05/30/18 16:02 PEEP Not Reportable 05/30/18 16:02 Pressure Support Not Reportable 05/30/18 16:02 Pressure Control Not Reportable 05/30/18 16:02 EPAP 6 05/30/18 16:02 IPAP 14 05/30/18 16:[address] 05/30/18 16:02 Sodium 137 mmol/L (135-145) 05/31/18 05:50 Potassium 4.6 mmol/L (3.5-5.0) 05/31/18 05:50 Chloride 101 mmol/L (101-111) 05/31/18 05:50 Carbon Dioxide 31 mmol/L (22-32) 05/31/18 05:50 Anion Gap 5 mmol/L (2-11) 05/31/18 05:50 BUN 13 mg/dL (6-24) 05/31/18 05:50 Creatinine 0.82 mg/dL (0.67-1.17) 05/31/18 05:50 Est GFR ( Amer) 117.2 (>60) 05/31/18 05:50 Est GFR (Non-Af Amer) 96.8 (>60) 05/31/18 05:50 BUN/Creatinine Ratio 15.9 (8-20) 05/31/18 05:50 Glucose 124 mg/dL (70-100) H 05/31/18 05:50 Calcium 8.9 mg/dL (8.6-10.3) 05/31/18 05:50
[2018-06-01] MEDS: Cyclobenzaprine TAB* 10 MG PO PRN (11:20)
--- NOTE | 2018-06-01 18:42 | PN ---
Subjective Date of Service: 06/01/18 Interval History: Pt states that his pain is 2/10 now and he is feeling well. States pain is worse with PT, but he is doing well with PT. He continues to require 2L NC. He states that he has "trouble with sleep." He states that he will go to bed around 10pm and wake suddenly around 12, and not be able to get back to sleep for 2-3 hours. He also mentions that he often doesn't feel well rested in the mornings. Discussed importance of sleep study and burden of JC on health, and he agrees to see PCP for f/u and sleep study order. He denies CP, SOB, cough, fever, peoples, blurred vision, abd pain, n/v/d/c, calf tenderness. Objective Active Medications: Acetaminophen (Tylenol Tab*) 975 mg PO Q8H PRN Hydrocodone Bitart/Acetaminophen ([place] 5-325 Tab*) 2 tab PO Q4H PRN Hydrocodone Bitart/Acetaminophen ([place] 5-325 Tab*) 1 tab PO Q4H PRN Amlodipine Besylate (Norvasc Tab*) 10 mg PO QAM [facility] Apixaban (Eliquis*) 2.5 mg PO BID [facility] Bisacodyl (Dulcolax Supp*) 10 mg MD DAILY PRN Bisoprolol Fumarate (Zebeta Tab*) 10 mg PO QAM [facility] Cyclobenzaprine HCl (Flexeril Tab*) 10 mg PO TID PRN Diphenhydramine HCl (Benadryl Iv*) 12.5 mg IV Q6H PRN Docusate Sodium (Colace Cap*) 100 mg PO BID [facility] Gabapentin (Neurontin Cap(*)) 300 mg PO BID [facility] Hydrochlorothiazide (Hydrodiuril Tab*) 6.25 mg PO QAM [facility] Lactated Ringer's (Lactated Ringers 1000 Ml Bag*) 1,000 mls @ 100 mls/hr IV PER RATE [facility] Lactulose (Lactulose*) 30 ml PO Q6H PRN Losartan Potassium (Cozaar Tab*) 100 mg PO QAM [facility] Magnesium Hydroxide (Milk Of Magnesia Liq*) 30 ml PO BID [facility] Magnesium Hydroxide (Milk Of Magnesia Liq*) 30 ml PO Q6H PRN Morphine Sulfate (Morphine Vial*) 2 mg IV Q2H PRN Ondansetron HCl (Zofran Inj*) 4 mg IV Q6H PRN Ondansetron HCl (Zofran Tab*) 4 mg PO Q6H PRN Polyethylene Glycol/Electrolytes (Miralax*) 17 gm PO DAILY PRN Tramadol HCl (Ultram*) 50 mg PO Q6H PRN Vital Signs: Temp Pulse Resp BP Pulse Ox 99.0 F 71 18 107/49 93 06/01/18 15:19 06/01/18 15:19 06/01/18 18:00 06/01/18 15:19 06/01/18 18:00 Oxygen Devices in Use Now: Nasal Cannula - 2L Appearance: Pt is sitting up in chair with b/l LE elevated. He is wearing O2 at 2L. He is in no acute distress and appears comfortable. Eyes: No Scleral Icterus, PERRLA Ears/Nose/Mouth/Throat: NL Teeth, Lips, Gums, Clear Oropharnyx, Mucous Membranes Moist Neck: NL Appearance and Movements; NL JVP, Trachea Midline Respiratory: Symmetrical Chest Expansion and Respiratory Effort, Clear to Auscultation Cardiovascular: NL Sounds; No Murmurs; No JVD, RRR, No Edema Abdominal: NL Sounds; No Tenderness; No Distention, No Hepatosplenomegaly Extremities: No Edema, No Clubbing, Cyanosis Skin: No Rash or Ulcers Neurological: Alert and Oriented x 3 Result Diagrams: 06/02/18 05:44 05/31/18 05:50 Assess/Plan/Problems-Billing Assessment: 57 yo M with h/o obesity and HTN developed resp acidosis post op requiring CPAP in ICU - Patient Problems (1) History of total knee arthroplasty Comment: -Management of LTKA per ortho team (2) Acute hypercapnic respiratory failure Comment: -Pt is low to mid 90's on 2L NC -Nocturnal desaturation study to be done tonight -F/u with PCP for sleep study (3) HTN (hypertension) Comment: -Controlled on losartan, amlodipine, bisoprolol, HCTZ (4) DVT prophylaxis Comment: -Eliquis as per ortho -Mild thrombocytopenia post op, cont to monitor Status and Disposition: Medicine consult. Discharge per ortho.
[2018-06-02] MEDS: HYDROcodone/ACETAMIN 5-325 MG* 1 TAB PO PRN ×3 (03:36→13:04)
[2018-06-02 06:06] LABS: Hematocrit 45 % (42-52); Hemoglobin 14.7 g/dl (14.0-18.0); Mean Platelet Volume 9.9 fL (7.4-10.4); Platelet Count 114 10^3/ul (150-450)
[2018-06-02 06:13] LABS: INR 1.16 (0.77-1.02)
[2018-06-02] MEDS: Magnesium Hydroxide LIQ* 30 ML UDC PO SCH (08:57)
[2018-06-02] MEDS: Apixaban* 2.5 MG TAB PO SCH (09:01)
[2018-06-02] MEDS: Bisoprolol TAB* 5 MG PO SCH (09:01)
[2018-06-02] MEDS: Losartan TAB* 25 MG PO SCH (09:01)
[2018-06-02] MEDS: Gabapentin CAP(*) 300 MG PO SCH (09:01)
[2018-06-02] MEDS: Hydrochlorothiazide TAB* 25 MG PO SCH (09:02)
[2018-06-02] MEDS: amLODIPine TAB* 5 MG PO SCH (09:02)
[2018-06-02] MEDS: Docusate CAP* 100 MG PO SCH (09:02)
--- NOTE | 2018-06-02 10:26 | PN ---
Progress Note - Progress Note Date of Service: 06/02/18 SOAP: Subjective: []Patient seen walking out of his room with aide. He is doing well with his knee. He denies SOB, CP, palpitations. He feels that he will be able to go home today. Awaiting home O2 set up prior to discharge today. Objective: [] Vital Signs Temp 97.9 F 06/02/18 03:29 Pulse 78 06/02/18 03:29 Resp 16 06/02/18 09:03 BP 116/62 06/02/18 03:29 Pulse Ox 94 06/02/18 06:00 Intake & Output 06/01/18 06/02/18 06/02/18 18:59 06:59 18:59 Intake Total 680 1580 125 Output Total 700 620 Balance -20 960 125 Intake: Oral 680 1580 125 Output: Urine 700 620 Other: Estimated Void Medium Date of Last Bowel 06/02/18 Movement # Bowel Movements 0 Estimated Stool Amount Large Laboratory Results - last 24 hr 06/02/18 06/02/18 05:44 05:44 Hgb 14.7 Hct 45 Plt Count 114 L MPV 9.9 INR (Anticoag Therapy) 1.16 H Left knee dressings changed 06/01 and remain dry and intact no change in N/V status which remains intact LLE Assessment: []s/p Left total knee arthroplasty Sleep apnea- need for home O2 therapy Plan: []Discharge home today once home O2 therapy is set up Follow up with Dr. Rothman as scheduled in 10-14 days
[2018-06-02 12:48] VITALS: BP 114/59
--- NOTE | 2018-06-02 15:18 | PN ---
Hospitalist Progress Note Date of Service: 06/02/18 Pt qualifies for home O2 per nocturnal desaturation study, but does not qualify for home O2, per insurance, as he will receive work up for JC in the near future. This was discussed with the patient. He has already called his PCP to start preauthorization for sleep study, and will follow up with them closely regarding study. He is very motivated to get study.
--- NOTE | 2018-06-02 16:15 | DS ---
AMENDED REPORT NOW INCLUDES COSIGNER DESIGNATION DISCHARGE SUMMARY: DATE OF ADMISSION: 05/30/18 DATE OF DISCHARGE: 06/02/18 ATTENDING PHYSICIAN: Dr. Annika Rothman.* (DICTATED BY LLOYD HENRY) ADMISSION DIAGNOSIS: Severe end-stage osteoarthritis, left knee joint. DISCHARGE DIAGNOSES: 1. Severe end-stage osteoarthritis, left knee joint. 2. Probable sleep apnea. SURGERY PERFORMED: Left total knee arthroplasty. HOSPITAL COURSE: Patient is a 57-year-old male with 1-year history of severe left knee pain. He has had multiple arthroscopies and also failed conservative management with antiinflammatories, pain medication, intraarticular cortisone injections, and physical therapy. His plain films revealed [id number] osteoarthritis. Due to continued pain and decreased quality of life, he elected to proceed with left total knee arthroplasty. He was taken to the operating room under the care of Dr. Annika Rothman on the date of 05/30/18 for the aforementioned procedure. He tolerated the procedure well and left the operating room in stable condition. Postoperatively, on his first night, he was monitored closely in the ICU due to low O2 sats on room air. He was placed on CPAP and did very well with this postoperatively. [place] that he likely was suffering from sleep apnea. A workup was done, which is indicative of that. He is feeling well, able to ambulate bearing weight as tolerated on the left lower extremity. It was felt that he was medically and orthopedically stable for discharge to home on the date of 06/02/18. CONDITION ON DISCHARGE: Her temperature was 98.5, pulse 71, respiratory rate 16 , O2 saturation 96% on nasal cannula O2, blood pressure 114/59. His left knee incision is healing without evidence of infection. His calf is soft and nontender. He has active dorsiflexion of the left ankle. PLAN: Discharge to home. He will not be able to go home on home O2 secondary to insurance requirements and the need for pulmonology workup with sleep apnea workup. The hospitalists have called the accounting systems manager's office today to schedule an expedient timeframe for his sleep apnea workup. He will continue on Eliquis 2.5 mg p.o. b.i.d. for DVT prophylaxis. He will use [place] 5/325 one to two tablets q.4 hours p.r.n. pain, #70, 0 refills provided. He will be able to continue to weight bear as tolerated on the left lower extremity. All questions were answered today. LLOYD HENRY [id number]/[facility] #: [id number] [place]
== END 2018-06-02 14:55 | disposition home health service (06) | DRG 302 ==
LOC: OR 05:32 → SSU 10:22 → ICU 14:58 → OBSVTOIN 05-31 11:17 → SSU 05-31 13:05
PROVIDERS: ADMIT Orthopaedic Surgery Adult Reconstructive Orthopaedic Surgery; ATTEND Orthopaedic Surgery Adult Reconstructive Orthopaedic Surgery
PROC: 0SRD069 Replacement of Left Knee Joint with Oxidized Zirconium on Polyethylene Synthetic Substitute, Cemented, Open Approach (ICD-10-PCS; principal; 2018-05-31)
PROC: 5A09357 Assistance with Respiratory Ventilation, Less than 24 Consecutive Hours, Continuous Positive Airway Pressure (ICD-10-PCS; 2018-05-31)
DX: M17.12 Unilateral primary osteoarthritis, left knee (principal); J96.02 Acute respiratory failure with hypercapnia; Z68.42 Body mass index [BMI] 45.0-49.9, adult; E87.2 Acidosis; I10 Essential (primary) hypertension; K76.0 Fatty (change of) liver, not elsewhere classified; N40.0 Benign prostatic hyperplasia without lower urinary tract symptoms; I45.10 Unspecified right bundle-branch block; E66.01 Morbid (severe) obesity due to excess calories; M25.762 Osteophyte, left knee; Z88.5 Allergy status to narcotic agent; Z88.2 Allergy status to sulfonamides; Z88.8 Allergy status to other drugs, medicaments and biological substances; Z72.89 Other problems related to lifestyle; G47.33 Obstructive sleep apnea (adult) (pediatric)
CPT/HCPCS: 36415; 36600; 71045; 80048; 82803; 85014; 85018; 85049; 85610; 94660; 94762; A9270-GY; C1776; J0690; J1100; J1170; J1240; J2250; J2270; J2405; J2704; J2795; J3010